=== PATIENT | female | born 1950 | race Caucasian/White ===

== ENCOUNTER 2023-04-01 13:25 | Emergency (ER) | payer MEDICARE, OTHER ==
[~2023-04-01] VITALS: Ht 170.2 cm; Wt 74.0 kg
[2023-04-01 13:28] VITALS: BP 144/58
== END 2023-04-01 14:20 | disposition home or self-care (01) ==
LOC: ER 13:26
DX: Z45.2 Encounter for adjustment and management of vascular access device (principal); M06.9 Rheumatoid arthritis, unspecified
CPT/HCPCS: 99281